=== PATIENT | male | born 1965 | race Caucasian/White ===

== ENCOUNTER 2024-02-17 15:34 | Emergency (ER) | payer OTHER, SELFPAY ==
[2024-02-17] VITALS (20 sets, daily range): BP systolic 127–157; BP diastolic 88–118; PULSE 81–109; RESP 13–26; TEMP 36.3–36.9; O2SAT 96–100
--- NOTE | ~2024-02-17 | XR_ITS ---
EXAM: XR wrist LT 2V DATE: 02/17/2024 16:30 HISTORY: POST REDUCTION . COMPARISON: Same date at 3:58 PM. FINDINGS/IMPRESSION: Interval cast application which obscures osseous detail. Redemonstration of the comminuted distal left radial fracture, slightly improved alignment, now with one half shaft width po sterior displacement, 1.4 cm overlap, and 20 degrees posterior angulation. Reviewed, dictated and finalized at location K.
--- NOTE | ~2024-02-17 | XR_ITS ---
EXAM: XR wrist LT min 3V DATE: 02/17/2024 16:03 HISTORY: trauma FOOSH . COMPARISON: None available. FINDINGS: Normal mineralization. Comminuted distal left radial fracture with slightly greater than o ne shaft width posterior displacement and 2 cm overlap. No lytic or blastic lesion. Scattered mild de generative changes. No erosion or periosteal change. Soft tissue swelling and distortion over the fra cture site. IMPRESSION: Comminuted fracture of the distal left radius, with significant posterior displacement an d overlap. Reviewed, dictated and finalized at location K. IMPRESSION: Comminuted fracture of the distal left radius, with significant pos terior displacement and overlap.
[2024-02-17] MEDS: HYDROmorphone HCL INJ (*CRX) 1 MG/ML SYR IV PUSH (15:50)
[2024-02-17] MEDS: ONDANSETRON INJ 4 MG/2 ML VIAL IV PUSH (15:50)
[2024-02-17 16:10] LABS: Basophils Percent Auto 0.6 % (0.2-1.2); Eosinophils Absolute Auto 0.1 K/mm3 (0-0.3); Eosinophils Percent Auto 0.8 % (0-4.4); Hematocrit 44.5 % (42.0-52.0); Hemoglobin 14.9 g/dL (14.0-18.0); Immature Granulocyte Absolute 0.03 K/mm3 (0.00-0.031); Immature Granulocyte Percent A 0.5 % (0-0.5); Lymphocytes Absolute Auto 2.65 K/mm3 (0.9-3.2); Lymphocytes Percent Auto 40.3 % (18.3-44.2); Mean Corpuscular HGB Conc 33.5 g/dl (32-36); Mean Corpuscular Hemoglobin 30.7 pg (26-34); Mean Corpuscular Volume 91.8 fl (80-100); Mean Platelet Volume 10.7 fl (7.4-10.4); Monocytes Absolute Auto 0.7 K/mm3 (0.1-0.6); Neutrophils Absolute Auto 3.2 K/mm3 (1.3-6.7); Neutrophils Percent Auto 47.8 % (45.5-73.1); Platelet Count Result 196 k/mm3 (150-375); Red Blood Count 4.85 M/mm3 (4.6-6.20); Red Cell Distribution Width 11.9 % (11.5-14.5); White Blood Count 6.6 K/mm3 (4.5-10.0)
[2024-02-17 16:21] LABS: Alanine Aminotransferase 26 U/L (6-50); Albumin Level 4.9 g/dL (3.5-5.1); Alkaline Phosphatase 85 U/L (38-126); Anion Gap 9 mmol/L (8-16); Aspartate Amino Transferase 31 U/L (17-59); Bilirubin,Total 0.6 mg/dL (0.2-1.3); Blood Urea Nitrogen 15 mg/dL (9-20); Calcium 9.3 mg/dL (8.4-10.2); Carbon Dioxide 22 mmol/L (22-30); Chloride 106 mmol/L (98-107); Estimated CRCL calculation 74 ml/min; Estimated Glomerular Filt Rate > 60; Glucose 137 mg/dL (65-110); Potassium 3.9 mmol/L (3.4-5.0); Sodium 137 mmol/L (137-145)
--- NOTE | 2024-02-17 16:35 | ED.GENADULT ---
HPI - General Adult General Chief complaint: Extremity Injury, Upper Stated complaint: arm injury Time Seen by Provider: 02/17/24 15:47 History of Present Illness HPI narrative: 58-year-old male presenting to the emergency department for evaluation for left wrist pain. patient had a 5 ft fall landing on his left wrist causing a deformity. Patient denies striking his head denies loss of consciousness. Related Data Home Medications Medication Instructions Recorded Confirmed fenofibrate 160 mg tablet 160 mg PO DAILY 02/04/20 10/15/23 triamcinolone acetonide 0.1 % 1 applic topical BID 02/04/20 10/15/23 topical cream Allergies Allergy/AdvReac Type Severity Reaction Status Date / Time Penicillins Allergy Unknown Hives Verified 02/17/24 15:37 Review of Systems Review of Systems: All systems reviewed & are unremarkable except as noted in HPI and below PMFSH Past Medical History Medical History Acquired hypothyroidism Family History Family History Father Family history of cardiovascular disease Social History Social History Smoking status: Never smoker Second hand tobacco smoke exposure: No Alcohol intake: current Drinks per week: 12 Substance use: current Substance use type: marijuana Lack of Transportation: No Lack of Food: Never True Current Housing: I Have Housing Concerned About Future Housing: No Difficulty Paying Gas/Electric Bills: No Difficulty Paying for Meds: No Currently Unemployed: No Education: High School Diploma/GED Difficulty w/ Childcare or Family Care: No Living arrangements: with family Occupation/Education: other Additional occupation/education comments: Disability Gender identity (if verbalized by the patient): Male Sexual Orientation (if Verbalized by the Patient): Straight or Heterosexual Exam Narrative: APPEARANCE: uncomfortable appearing HEAD: normocephalic, atraumatic. EYES: PERRLA/EOMI, conjunctivae clear. NOSE: Normal no drainage EARS:TMS clear with good light reflex. THROAT: Pharynx clear, no exudate. NECK: Supple. No adenopathy, no masses. RESPIRATORY: Airway patent, respirations nonlabored. Clear to auscultation bilaterally, no rales, rhonchi, wheezing. CARDIOVASCULAR: Regular rate and rhythm without murmurs rubs or gallops. ABDOMINAL: Soft, nontender, nondistended, normal bowel sounds MUSCULOSKELETAL: Deformity of left wrist, normal vascular intact, strong cap refill NEURO: Alert. Cranial nerves II through XII intact. Good gait. Good coordination SKIN: Warm, dry. Normal Color Course Course Emergency Course: patient was discharged to home with outpatient orthopedics follow-up Vital Signs Vital signs: Vital Signs Temperature 97.3 F L 02/17/24 15:39 Pulse Rate 105 H 02/17/24 15:39 Respiratory Rate 17 02/17/24 15:39 Blood Pressure 140/94 H 02/17/24 15:39 Pulse Oximetry 100 02/17/24 15:39 Oxygen Delivery Room Air 02/17/24 15:39 Temperature 98.4 F 02/17/24 16:10 Pulse Rate 94 02/17/24 18:00 Respiratory Rate 16 02/17/24 18:00 Blood Pressure 127/91 H 02/17/24 16:31 Pulse Oximetry 99 02/17/24 17:36 Oxygen Delivery Room Air 02/17/24 16:49 Oxygen Flow Rate 2 02/17/24 16:27 Procedures Orthopedic Joint Reduction Joint #1: Orthopedic Joint Reduction Time: 16:37 Time Out Performed: Yes Side: left Joint Reduction Location: wrist Analgesia: procedural sedation Pre-Procedure Neuro Vascular Exam: normal Shoulder Technique Used (if applicable): traction/counter-traction Technique used: traction/counter-traction Post-reduction neuro exam: intact Post-reduction vascular: intact Post Reduction X-Ray Obtained: Yes Post Reduction X-Ray Result
--- NOTE | 2024-02-17 16:47 | PC.NURSE ---
patient tolerated IV sedation, reduction and post reduction. vital signs stable at this time.
[2024-02-17] MEDS: PROPOFOL IV EMULSION 200 MG/20 ML VIAL 160 MG IV PUSH (16:51)
== END 2024-02-17 18:40 | disposition home or self-care (01) ==
PROVIDERS: Emergency Provider Emergency Medicine; PCP Family Medicine
DX: S52.592A Other fractures of lower end of left radius, initial encounter for closed fracture (principal); E03.9 Hypothyroidism, unspecified; W17.89XA Other fall from one level to another, initial encounter
CPT/HCPCS: 25505; 25605; 36415; 73100; 73110; 80053; 85025; 96374; 96375; 99285; A4565; J1170; J2405; J2704

== ENCOUNTER 2025-05-19 11:51 | Outpatient (CLI) | payer MEDICARE, SELFPAY ==
--- NOTE | ~2025-05-19 | XR_ITS ---
CHEST RADIOGRAPH, PA AND LATERAL CLINICAL HISTORY: M79.89 - Other specified soft tissue disorders . COMPARISON: None available TECHNIQUE: PA and lateral views of the chest. FINDINGS The cardiomediastinal silhouette is unremarkable. Calcified granulomas within the right mid to lower lung field. The lungs are otherwise clear. IMPRESSION: No focal infiltrate or effusion. Reviewed, dictated and finalized at location A.
== END 2025-05-19 11:52 | disposition home or self-care (01) ==
LOC: MICIMG 11:52
PROVIDERS: PCP Family Medicine; Visit Provider Physician Assistant
DX: M79.89 Other specified soft tissue disorders (principal)
CPT/HCPCS: 71046